=== PATIENT | female | born 1975 | race Caucasian/White ===

== ENCOUNTER 2018-03-27 19:56 | Emergency (ER) | payer SELFPAY ==
[~2018-03-27] VITALS: Ht 175.3 cm; Wt 90.9 kg
[2018-03-27] MEDS ORDERED: ASPIRIN 81 MG TABLET CHEW PO ONE (20:30)
[2018-03-27] MEDS ORDERED: ASPIRIN 81 MG TABLET CHEW ONE (20:31)
[2018-03-27 20:41] LABS: MEAN CORPUSCULAR HEMOGLOBIN 29.9 pg (27.0-34.8); MEAN CORPUSCULAR HGB CONC 33.4 g/dL (32.4-35.8); MEAN CORPUSCULAR VOLUME 89.6 fL (80-100); MEAN PLATELET VOLUME 8.6 fL (7.4-10.4); PLATELET COUNT 362 x10^3/uL (130-400); RED BLOOD COUNT 5.31 x10^6/uL (3.82-5.3); RED CELL DISTRIBUTION WIDTH 14.5 % (9.6-15.2)
[2018-03-27 20:48] LABS: ALBUMIN 3.9 g/dL (3.4-5.0); ANION GAP 9 mmol/L (5-15); CALCIUM 8.9 mg/dL (8.5-10.1); CHLORIDE 108 mmol/L (98-107); CREATININE 0.96 mg/dL (0.55-1.02)
[2018-03-27 20:52] LABS: TROPONIN I < 0.015 ng/mL (0.000-0.045)
[2018-03-27 21:06] LABS: MD SCAN
[2018-03-27 21:07] LABS: BASOPHILS # (AUTO) 0.13 x10^3/uL (0-0.1); BASOPHILS % (AUTO) 1 % (0-1); EOSINOPHILS # (AUTO) 0.34 x10^3/uL (0-0.4); EOSINOPHILS % (AUTO) 2 % (1-7); LYMPHOCYTES # (AUTO) 5.36 x10^3/uL (1-3.4); LYMPHOCYTES % (AUTO) 32 % (22-44); MONOCYTES # (AUTO) 1.21 x10^3/uL (0.2-0.8); MONOCYTES % (AUTO) 7 % (2-9); NEUTROPHILS # (AUTO) 9.86 x10^3/uL (1.8-6.8); NEUTROPHILS % (AUTO) 58 % (42-75)
[2018-03-27] MEDS ORDERED: SODIUM CHLORIDE 0.9% 1,000ML IVBOLUS ONE (21:30)
[2018-03-27 22:13] LABS: AMPHETAMINE SCREEN, URINE Positive (Negative); BARBITURATE SCREEN, URINE Negative (Negative); BENZODIAZEPINE SCREEN, URINE Negative (Negative); CANNABINOID SCREEN, URINE Negative (Negative); COCAINE SCREEN, URINE Negative (Negative); METHADONE SCREEN, URINE Negative (Negative); OPIATE SCREEN, URINE Negative (Negative)
[2018-03-27 22:23] LABS: CULTURE INDICATED? YES; MICROSCOPIC INDICATED
[2018-03-27] MEDS ORDERED: CEFTRIAXONE PMX 1GM/50ML 50 ML ONE (23:12)
[2018-03-27 23:17] VITALS: BP 151/94
[2018-03-27] MEDS ORDERED: CEFTRIAXONE PMX 1GM/50ML 50 ML IV ONE (23:30)
== END 2018-03-27 23:53 | disposition home or self-care (01) ==
LOC: ED 23:47
DX: N12 Tubulo-interstitial nephritis, not specified as acute or chronic (principal); R07.89 Other chest pain; E86.0 Dehydration; E11.9 Type 2 diabetes mellitus without complications; F17.200 Nicotine dependence, unspecified, uncomplicated
CPT/HCPCS: 36415; 71045; 80048; 80307; 81001; 82040; 84484; 85025; 85379; 87077; 87086; 93005; 96361; 96365; 99285; J0696; J7030; 87186

== ENCOUNTER 2018-05-20 16:21 | Emergency (ER) | payer SELFPAY ==
[~2018-05-20] VITALS: Ht 175.3 cm; Wt 92.0 kg
[2018-05-20 16:34] VITALS: BP 160/98
== END 2018-05-20 18:01 | disposition home or self-care (01) ==
LOC: ED 17:55
DX: S92.355A Nondisplaced fracture of fifth metatarsal bone, left foot, initial encounter for closed fracture (principal); F17.200 Nicotine dependence, unspecified, uncomplicated; W19.XXXA Unspecified fall, initial encounter; Y93.89 Activity, other specified; Y92.009 Unspecified place in unspecified non-institutional (private) residence as the place of occurrence of the external cause; Y99.8 Other external cause status
CPT/HCPCS: 29515; 99284

== ENCOUNTER 2019-01-13 10:18 | Inpatient (IN) | payer MEDICAID, OTHER ==
[~2019-01-13] VITALS: Ht 175.3 cm; Wt 84.2 kg
[2019-01-13] MEDS ORDERED: IBUPROFEN 200 MG TABLET ONE (11:24)
[2019-01-13] MEDS ORDERED: IBUPROFEN 600 MG TABLET PO ONE (11:30)
--- NOTE | 2019-01-13 12:26 | NUR ---
PT TO ED FOR RIGHT 3RD TOE PAIN X "A FEW WEEKS". PT STATED SHE STUBBED HER TOE A FEW TIMES OVER A WEEK, A FEW WEEKS AGO. TOE IS DARK PURPLE TO BLACK. ORTHO CONSULTED. MEDICATED PER JAN. PT TRANSFERED TO CORE ROOM.
[2019-01-13] MEDS ORDERED: AMPICILLIN/SULBACTAM 3 GM in SODIUM CHLORIDE 0.9% 100 ML IVPB ONE (12:30)
[2019-01-13] MEDS ORDERED: ONDANSETRON 2MG/ML, 2ML IVPush ONE (12:30)
[2019-01-13] MEDS ORDERED: SODIUM CHLORIDE FLUSH 10ML SYR IVF ONE (12:30)
[2019-01-13 12:50] LABS: BASOPHILS # (AUTO) 0.06 x10^3/uL (0-0.1); BASOPHILS % (AUTO) 1 % (0-1); EOSINOPHILS # (AUTO) 0.33 x10^3/uL (0-0.4); EOSINOPHILS % (AUTO) 3 % (1-7); LYMPHOCYTES # (AUTO) 3.64 x10^3/uL (1-3.4); LYMPHOCYTES % (AUTO) 31 % (22-44); MD NO; MEAN CORPUSCULAR HEMOGLOBIN 29.2 pg (27.0-34.8); MEAN CORPUSCULAR HGB CONC 33.5 g/dL (32.4-35.8); MEAN CORPUSCULAR VOLUME 87.2 fL (80-100); MONOCYTES # (AUTO) 1.09 x10^3/uL (0.2-0.8); MONOCYTES % (AUTO) 9 % (2-9); NEUTROPHILS # (AUTO) 6.79 x10^3/uL (1.8-6.8); NEUTROPHILS % (AUTO) 57 % (42-75); PLATELET COUNT 429 x10^3/uL (130-400); RED BLOOD COUNT 4.93 x10^6/uL (3.82-5.3); RED CELL DISTRIBUTION WIDTH 14.4 % (9.6-15.2)
[2019-01-13] MEDS ORDERED: ONDANSETRON 2MG/ML, 2ML ONE (13:06)
[2019-01-13] MEDS ORDERED: MORPHINE SULFATE 4 MG/ML, 1ML ONE ×2 (13:07→13:53)
--- NOTE | 2019-01-13 13:13 | NUR ---
Patient up to restroom with steady gait.
--- NOTE | 2019-01-13 13:15 | NUR ---
Per Dr. Patterson at bedside, hold unasyn at this time, verbal order read back and verified. Dr. Patterson to discontinue unasyn and order zosyn and vancomycin to be administered prior to surgery.
[2019-01-13] MEDS: MORPHINE SULFATE 4 MG/ML, 1ML IVPush PRN ×2 (13:17→13:55)
[2019-01-13] MEDS ORDERED: ONDANSETRON 2MG/ML, 2ML IVPush PRN (13:30)
[2019-01-13] MEDS ORDERED: VANCOMYCIN PER PHARMACY MC PRN (13:30)
[2019-01-13] MEDS ORDERED: LABETALOL 5 MG/ML SYRINGE IVPush PRN (13:30)
[2019-01-13] MEDS ORDERED: ACETAMINOPHEN 325 MG TABLET PO PRN (13:30)
[2019-01-13 13:34] LABS: MICROSCOPIC AUTO
[2019-01-13 13:41] LABS: INTERNATIONAL NORMALIZED RATIO 0.9 (0.93-1.1); PROTHROMBIN TIME 9.5 Seconds (9.6-11.5)
[2019-01-13 13:43] LABS: HCT (SEDRATE) 44.9 % (34.6-47.8)
[2019-01-13 13:50] LABS: CULTURE INDICATED? YES
[2019-01-13] MEDS ORDERED: PIPERACILLIN/TAZO/PMX 3.375GM 50 ML ONE (13:50)
[2019-01-13] MEDS: PIPERACILLIN/TAZO/PMX 3.375GM 50 ML IV SCH ×2 (13:55→20:52)
--- NOTE | 2019-01-13 14:02 | NUR ---
Report called to JOCELIN Mccormick. Plan of care updated with patient, questions answered.
--- NOTE | 2019-01-13 14:04 | NUR ---
Supplemental oxygen applied via nasal cannula at 2LPM after second morphine administration.
[2019-01-13] MEDS: HEPARIN 5,000 UNITS/ML, 1ML SQ SCH ×2 (14:30→20:54)
[2019-01-13 14:43] LABS: ALANINE AMINOTRANSFERASE 46 U/L (12-78); ALBUMIN 3.6 g/dL (3.4-5.0); ANION GAP 8 mmol/L (5-15); CALCIUM 8.8 mg/dL (8.5-10.1); CHLORIDE 105 mmol/L (98-107); CREATININE 0.78 mg/dL (0.55-1.02)
[2019-01-13 14:46] LABS: ALKALINE PHOSPHATASE 99 U/L (45-117); BILIRUBIN,TOTAL 0.3 mg/dL (0.2-1.0); TOTAL PROTEIN 7.4 g/dL (6.4-8.2)
[2019-01-13 14:49] VITALS: BP 135/80
[2019-01-13] MEDS ORDERED: PHARMACOKINETIC MONITORING MC PRN (15:00)
[2019-01-13] MEDS ORDERED: PHARMACOKINETIC CONSULTATION MC ONE (15:00)
[2019-01-13] MEDS: SODIUM CHLORIDE 0.9% 1,000 ML IV SCH (15:04)
[2019-01-13] MEDS: VANCOMYCIN 1,800 MG in SODIUM CHLORIDE 0.9% 250 ML IV SCH (16:39)
[2019-01-13 16:40] LABS: HEMOGLOBIN A1C 12.2 % (4.2-6.3)
[2019-01-13] MEDS: INSULIN LISPRO 100 UNITS/ML, PEN SQ-INSULIN SCH ×2 (17:20→20:52)
[2019-01-13] MEDS: morphine SULFATE 10 MG/ML, 1ML IVPush PRN (18:36)
[2019-01-13] MEDS ORDERED: GADOBUTROL 10 MMOL/10 ML PFS ONE (18:37)
[2019-01-13 19:49] VITALS: BP 129/86
[2019-01-13] MEDS: HYDROcodone/APAP 5/325 TABLET PO PRN (23:45)
[2019-01-14 01:30] VITALS: BP 98/61
[2019-01-14] MEDS: SODIUM CHLORIDE 0.9% 1,000 ML IV SCH ×2 (01:57→09:56)
[2019-01-14] MEDS: PIPERACILLIN/TAZO/PMX 3.375GM 50 ML IV SCH ×4 (02:58→20:45)
[2019-01-14] MEDS: morphine SULFATE 10 MG/ML, 1ML IVPush PRN ×2 (03:55→07:57)
[2019-01-14 05:16] LABS: BASOPHILS # (AUTO) 0.04 x10^3/uL (0-0.1); BASOPHILS % (AUTO) 0 % (0-1); EOSINOPHILS # (AUTO) 0.48 x10^3/uL (0-0.4); EOSINOPHILS % (AUTO) 4 % (1-7); LYMPHOCYTES # (AUTO) 2.92 x10^3/uL (1-3.4); LYMPHOCYTES % (AUTO) 24 % (22-44); MD NO; MEAN CORPUSCULAR HEMOGLOBIN 30.3 pg (27.0-34.8); MEAN CORPUSCULAR HGB CONC 33.7 g/dL (32.4-35.8); MEAN CORPUSCULAR VOLUME 89.9 fL (80-100); MEAN PLATELET VOLUME 9.1 fL (7.4-10.4); MONOCYTES # (AUTO) 1.18 x10^3/uL (0.2-0.8); MONOCYTES % (AUTO) 10 % (2-9); NEUTROPHILS # (AUTO) 7.52 x10^3/uL (1.8-6.8); NEUTROPHILS % (AUTO) 62 % (42-75); PLATELET COUNT 387 x10^3/uL (130-400); RED BLOOD COUNT 4.42 x10^6/uL (3.82-5.3); RED CELL DISTRIBUTION WIDTH 13.6 % (9.6-15.2)
[2019-01-14 05:33] LABS: ALBUMIN 2.9 g/dL (3.4-5.0); ANION GAP 5 mmol/L (5-15); CHLORIDE 106 mmol/L (98-107)
[2019-01-14 05:36] LABS: ALANINE AMINOTRANSFERASE 36 U/L (12-78); ALKALINE PHOSPHATASE 85 U/L (45-117); BILIRUBIN,TOTAL 0.7 mg/dL (0.2-1.0); CREATININE 0.79 mg/dL (0.55-1.02); TOTAL PROTEIN 6.1 g/dL (6.4-8.2)
[2019-01-14] MEDS: HEPARIN 5,000 UNITS/ML, 1ML SQ SCH ×3 (06:30→22:19)
[2019-01-14] MEDS: INSULIN LISPRO 100 UNITS/ML, PEN SQ-INSULIN SCH ×4 (07:00→21:02)
[2019-01-14 08:31] VITALS: BP 109/74
[2019-01-14] MEDS: VANCOMYCIN 1,800 MG in SODIUM CHLORIDE 0.9% 250 ML IV SCH (09:55)
[2019-01-14 13:25] VITALS: BP 120/70
[2019-01-14] MEDS: HYDROcodone/APAP 5/325 TABLET PO PRN ×2 (14:02→21:08)
[2019-01-14 20:12] VITALS: BP 118/76
[2019-01-15] MEDS: PIPERACILLIN/TAZO/PMX 3.375GM 50 ML IV SCH ×4 (01:59→18:11)
[2019-01-15 02:03] VITALS: BP 129/85
[2019-01-15] MEDS: VANCOMYCIN 1,800 MG in SODIUM CHLORIDE 0.9% 250 ML IV SCH ×2 (03:22→21:47)
[2019-01-15 05:23] LABS: BASOPHILS # (AUTO) 0.06 x10^3/uL (0-0.1); BASOPHILS % (AUTO) 1 % (0-1); EOSINOPHILS # (AUTO) 0.43 x10^3/uL (0-0.4); EOSINOPHILS % (AUTO) 5 % (1-7); LYMPHOCYTES % (AUTO) 38 % (22-44); MD NO; MEAN CORPUSCULAR HGB CONC 33.5 g/dL (32.4-35.8); MEAN CORPUSCULAR VOLUME 89.7 fL (80-100); MEAN PLATELET VOLUME 9.1 fL (7.4-10.4); MONOCYTES # (AUTO) 1.05 x10^3/uL (0.2-0.8); MONOCYTES % (AUTO) 11 % (2-9); NEUTROPHILS % (AUTO) 46 % (42-75); PLATELET COUNT 380 x10^3/uL (130-400); RED BLOOD COUNT 4.53 x10^6/uL (3.82-5.3); RED CELL DISTRIBUTION WIDTH 13.9 % (9.6-15.2)
[2019-01-15] MEDS: HEPARIN 5,000 UNITS/ML, 1ML SQ SCH ×3 (06:30→21:53)
[2019-01-15] MEDS ORDERED: DEXTROSE 4 GM TAB.CHEW PO PRN (07:30)
[2019-01-15] MEDS ORDERED: GLUCAGON 1 MG IM PRN (07:30)
[2019-01-15] MEDS ORDERED: DEXTROSE 50%, 50ML SYRINGE IVPush PRN (07:30)
[2019-01-15 08:00] VITALS: BP 114/64
[2019-01-15] MEDS: morphine SULFATE 10 MG/ML, 1ML IVPush PRN (08:03)
[2019-01-15] MEDS: INSULIN LISPRO 100 UNITS/ML, PEN SQ-INSULIN SCH ×4 (08:03→21:51)
[2019-01-15] MEDS ORDERED: ACETAMINOPHEN 500 MG TABLET PO ONE (08:30)
[2019-01-15] MEDS ORDERED: OxyconTIN ER 10 MG TAB.ER PO ONE (08:30)
[2019-01-15] MEDS ORDERED: GABAPENTIN 300 MG CAPSULE PO ONE (08:30)
[2019-01-15] MEDS ORDERED: TAMSULOSIN 0.4 MG CAP.ER.24H PO ONE (08:30)
[2019-01-15] MEDS: SODIUM CHLORIDE FLUSH 10ML SYR IVF SCH ×2 (09:00→21:00)
[2019-01-15] MEDS: INSULIN GLARGINE 100 UNITS/ML, PEN SQ-INSULIN SCH ×2 (09:00→21:52)
[2019-01-15] MEDS ORDERED: SODIUM CHLORIDE 0.9% 1,000 ML IV SCH (13:12)
[2019-01-15] MEDS ORDERED: BUPIVACAINE/PF 0.5% ONE (13:19)
[2019-01-15] MEDS ORDERED: METOPROLOL 1 MG/ML, 5ML IV PRN (13:30)
[2019-01-15] MEDS ORDERED: HYDROmorphone 2 MG/ML, 1ML IVPush PRN (13:30)
[2019-01-15] MEDS ORDERED: HALOPERIDOL 5 MG/ML IV PRN (13:30)
[2019-01-15] MEDS ORDERED: OXYcodone 5 MG/5 ML ORAL.SOL UDC PO PRN ×2 (13:30→14:30)
[2019-01-15] MEDS ORDERED: PROMETHAZINE 25 MG/ML, 1ML IV PRN ×2 (13:30→14:30)
[2019-01-15] MEDS ORDERED: MIDAZOLAM 1 MG/ML, 2ML ONE (13:30)
[2019-01-15] MEDS ORDERED: FENTANYL PF 100 MCG/2ML IV PRN ×2 (13:30→14:30)
[2019-01-15] MEDS ORDERED: FENTANYL PF 250 MCG/5ML ONE (13:30)
[2019-01-15] MEDS ORDERED: PROPOFOL 50 ML ONE (13:30)
[2019-01-15] MEDS ORDERED: LABETALOL 5MG/ML, 20ML IV PRN (13:30)
[2019-01-15] MEDS ORDERED: PROCHLORPERAZINE 5 MG/ML, 2ML IV PRN (13:30)
[2019-01-15] MEDS ORDERED: MEPERIDINE/PF 25MG/0.5ML IVPush PRN ×2 (13:30→14:30)
[2019-01-15] MEDS ORDERED: DIPHENHYDRAMINE 50 MG/ML, 1ML IVPush PRN ×2 (13:30→14:30)
[2019-01-15] MEDS ORDERED: hydrALAzine 20 MG/ML, 1ML IV PRN (13:30)
[2019-01-15] MEDS ORDERED: ONDANSETRON 2MG/ML, 2ML IV PRN (14:30)
[2019-01-15] MEDS ORDERED: ONDANSETRON ODT 8 MG PO PRN (14:30)
[2019-01-15] MEDS ORDERED: ACETAMINOPHEN 325 MG TABLET PO PRN (14:30)
[2019-01-15] MEDS ORDERED: MORPHINE SULFATE 4 MG/ML, 1ML IVPush PRN (14:30)
[2019-01-15] MEDS ORDERED: MIDAZOLAM 1 MG/ML, 2ML IV PRN (14:30)
[2019-01-15] MEDS ORDERED: PROMETHAZINE 25 MG SUPP PR PRN (14:30)
[2019-01-15] MEDS ORDERED: EPHEDRINE 50 MG/ML, 1ML IM PRN (14:30)
[2019-01-15] MEDS ORDERED: DIAZEPAM 5 MG/ML, 2ML IVPush PRN (14:30)
[2019-01-15] MEDS ORDERED: PROMETHAZINE 12.5 MG SUPP PR PRN (14:30)
[2019-01-15 14:50] LABS: HCG UR SG 1.011 (1.003-1.030)
[2019-01-15 20:16] VITALS: BP 109/67
[2019-01-15] MEDS: HYDROcodone/APAP 5/325 TABLET PO PRN (21:47)
[2019-01-16 00:05] VITALS: BP 115/65
[2019-01-16] MEDS: PIPERACILLIN/TAZO/PMX 3.375GM 50 ML IV SCH ×2 (01:55→08:34)
[2019-01-16 04:07] VITALS: BP 123/83
[2019-01-16] MEDS: HEPARIN 5,000 UNITS/ML, 1ML SQ SCH ×3 (06:06→22:52)
[2019-01-16] MEDS: HYDROcodone/APAP 5/325 TABLET PO PRN ×4 (06:13→20:40)
[2019-01-16 08:29] VITALS: BP 117/71
[2019-01-16] MEDS: SODIUM CHLORIDE FLUSH 10ML SYR IVF SCH ×2 (08:34→20:35)
[2019-01-16] MEDS: INSULIN LISPRO 100 UNITS/ML, PEN SQ-INSULIN SCH ×4 (08:36→20:36)
[2019-01-16] MEDS: morphine SULFATE 10 MG/ML, 1ML IVPush PRN (08:43)
[2019-01-16] MEDS ORDERED: INSULIN GLARGINE 100 UNITS/ML, PEN SQ-INSULIN SCH (09:00)
[2019-01-16] MEDS: ERTAPENEM 1 GM in SODIUM CHLORIDE 0.9% 50 ML IV SCH (10:25)
[2019-01-16] MEDS ORDERED: DEXTROSE 50%, 50ML SYRINGE IVPush PRN (12:00)
[2019-01-16] MEDS ORDERED: GLUCAGON 1 MG IM PRN (12:00)
[2019-01-16] MEDS ORDERED: DEXTROSE 4 GM TAB.CHEW PO PRN (12:00)
[2019-01-16 14:31] VITALS: BP 110/64
[2019-01-16 15:40] VITALS: BP 118/77
[2019-01-16 19:20] VITALS: BP 144/96
[2019-01-16] MEDS: INSULIN GLARGINE 100 UNITS/ML, PEN SQ-INSULIN SCH (20:36)
[2019-01-17 00:20] VITALS: BP 137/84
[2019-01-17] MEDS: HYDROcodone/APAP 5/325 TABLET PO PRN ×3 (01:30→11:10)
[2019-01-17] MEDS: HEPARIN 5,000 UNITS/ML, 1ML SQ SCH (06:16)
[2019-01-17] MEDS: INSULIN LISPRO 100 UNITS/ML, PEN SQ-INSULIN SCH ×2 (06:43→11:10)
[2019-01-17 07:51] VITALS: BP 134/87
[2019-01-17] MEDS ORDERED: LISINOPRIL 5 MG TABLET PO SCH (09:00)
[2019-01-17] MEDS: ERTAPENEM 1 GM in SODIUM CHLORIDE 0.9% 50 ML IV SCH (09:10)
[2019-01-17] MEDS: INSULIN GLARGINE 100 UNITS/ML, PEN SQ-INSULIN SCH (09:11)
[2019-01-17] MEDS: SODIUM CHLORIDE FLUSH 10ML SYR IVF SCH (09:12)
[2019-01-17] MEDS ORDERED: INSU100I13 SQ-INSULIN (11:35)
[2019-01-17] MEDS ORDERED: INSU100I11 SQ-INSULIN (11:35)
[2019-01-17] MEDS ORDERED: LISI5TAB7 PO (11:35)
[2019-01-17] MEDS ORDERED: ACET325T21 PO ×2 (11:41→12:25)
[2019-01-17] MEDS ORDERED: IBUP-1222 PO ×2 (11:41→12:25)
[2019-01-17 13:10] VITALS: BP 134/85
== END 2019-01-17 14:22 | disposition home or self-care (01) | DRG 854 ==
LOC: ED 12:22 → EDIP 12:23 → ED 12:27 → 4NOR 14:20 → DCLOUNGE 01-17 13:57
PROVIDERS: ADMIT Internal Medicine; ATTEND Internal Medicine
PROC: 0QS Lower Bones, Reposition (ICD-10-PCS; 2019-01-15)
PROC: 0Y6T0Z1 Detachment at Right 3rd Toe, High, Open Approach (ICD-10-PCS; principal; 2019-01-15 15:00)
PROC: 02HV33Z Insertion of Infusion Device into Superior Vena Cava, Percutaneous Approach (ICD-10-PCS; 2019-01-16)
PROC: B5181ZA Fluoroscopy of Superior Vena Cava using Low Osmolar Contrast, Guidance (ICD-10-PCS; 2019-01-16)
PROC: B548ZZA Ultrasonography of Superior Vena Cava, Guidance (ICD-10-PCS; 2019-01-16)
DX: A41.9 Sepsis, unspecified organism (principal); S82.042A Displaced comminuted fracture of left patella, initial encounter for closed fracture; E11.52 Type 2 diabetes mellitus with diabetic peripheral angiopathy with gangrene; M86.171 Other acute osteomyelitis, right ankle and foot; N39.0 Urinary tract infection, site not specified; E11.42 Type 2 diabetes mellitus with diabetic polyneuropathy; E11.65 Type 2 diabetes mellitus with hyperglycemia; E11.69 Type 2 diabetes mellitus with other specified complication; F17.210 Nicotine dependence, cigarettes, uncomplicated; B96.20 Unspecified Escherichia coli [E. coli] as the cause of diseases classified elsewhere; W18.39XA Other fall on same level, initial encounter; Y93.89 Activity, other specified; Y92.89 Other specified places as the place of occurrence of the external cause; Y99.8 Other external cause status; Z79.899 Other long term (current) drug therapy; Z83.3 Family history of diabetes mellitus; Z71.6 Tobacco abuse counseling
CPT/HCPCS: 36415; 36573; 80048; 80053; 81001; 81025; 82040; 82962; 83036; 83605; 84145; 85025; 85610; 85651; 85730; 86140; 87040; 87070; 87077; 87086; 87186; 87205; 88305; 88311; 96374; 96375; 96376; 99285; A9585; G0378; J1335; J1644; J2250; J2405; J2543; J2704; J3010; J3370; J3490; C1751; J1815; J2270; J7030; J7050

== ENCOUNTER 2019-02-17 17:40 | Emergency (ER) | payer MEDICAID ==
[~2019-02-17] VITALS: Ht 172.7 cm; Wt 98.0 kg
[~2019-02-17 17:40] MED LIST: ACET325T21 PO; IBUP-1222 PO; INSU100I11 SQ-INSULIN; INSU100I13 SQ-INSULIN; LISI5TAB7 PO
[2019-02-17] MEDS ORDERED: NICO-486 TD (17:57)
[2019-02-17] MEDS ORDERED: INSU100V8 SQ (17:57)
[2019-02-17] MEDS ORDERED: TRAZ-137 PO (17:57)
[2019-02-17] MEDS ORDERED: GABA300C10 PO (17:57)
[2019-02-17] MEDS ORDERED: CEFA2PLA10 IV (17:57)
--- NOTE | 2019-02-17 17:59 | NUR ---
Pt currently resides and [facility] after having a toe ampuation from diabetic complications. C/O chest pain x3 days, increasingly worse today, radiates to bilateral arms, reports SOB, lungs clear rm air sat above 94%.
[2019-02-17 18:34] LABS: BASOPHILS # (AUTO) 0.12 x10^3/uL (0-0.1); BASOPHILS % (AUTO) 1 % (0-1); EOSINOPHILS # (AUTO) 0.62 x10^3/uL (0-0.4); EOSINOPHILS % (AUTO) 6 % (1-7); LYMPHOCYTES % (AUTO) 32 % (22-44); MD NO; MEAN CORPUSCULAR VOLUME 88.3 fL (80-100); MEAN PLATELET VOLUME 8.4 fL (7.4-10.4); MONOCYTES # (AUTO) 0.85 x10^3/uL (0.2-0.8); MONOCYTES % (AUTO) 8 % (2-9); NEUTROPHILS # (AUTO) 5.54 x10^3/uL (1.8-6.8); NEUTROPHILS % (AUTO) 53 % (42-75); PLATELET COUNT 320 x10^3/uL (130-400); RED BLOOD COUNT 4.19 x10^6/uL (3.82-5.3); RED CELL DISTRIBUTION WIDTH 13.4 % (9.6-15.2)
[2019-02-17 18:43] LABS: ALANINE AMINOTRANSFERASE 63 U/L (12-78); ALBUMIN 3.3 g/dL (3.4-5.0); ANION GAP 7 mmol/L (5-15); CALCIUM 8.8 mg/dL (8.5-10.1); CHLORIDE 110 mmol/L (98-107); CREATININE 0.72 mg/dL (0.55-1.02)
[2019-02-17 18:47] LABS: ALKALINE PHOSPHATASE 72 U/L (45-117); BILIRUBIN,TOTAL 0.2 mg/dL (0.2-1.0); TOTAL PROTEIN 6.4 g/dL (6.4-8.2); TROPONIN I < 0.015 ng/mL (0.000-0.045)
--- NOTE | 2019-02-17 19:06 | NUR ---
Break RN: ERP at bedside.
[2019-02-17 19:09] VITALS: BP 142/87
== END 2019-02-17 19:50 | disposition home or self-care (01) ==
LOC: ED 19:44
DX: R07.89 Other chest pain (principal); I10 Essential (primary) hypertension; E11.9 Type 2 diabetes mellitus without complications
CPT/HCPCS: 36415; 71045; 80053; 84484; 85025; 93005; 99284